=== PATIENT | female | born 1950 | race Caucasian/White ===

== ENCOUNTER → 2020-07-01 | Outpatient (CLI) | payer OTHER, BC ==
[~2020-07-01] MED LIST: ACID CONTROLLER10 MG PO; ALDACTONE25 MG PO; BACTRIM DS TAB1 EACH PO; CHROMAGEN CAPSU1 CAP PO; COREG6.25 MG PO; ENOXAPARIN40 MG/0.4 SUBQ; FEOSOL PO; FISH OIL 1,0001 EAC5 PO; FOLIC ACID 40400 MC1 PO; FOLIC ACID1 MG PO; IBUPROFEN 600600 M1 PO; METHOTREXATE 22.5 MG PO; MULTIVITAMINS PO; MYLANTA 12 OZ355 M1 PO; MYLANTA PO; NASOGEL INH; NORCO 5-325 TA1 EACH PO; TORSEMIDE PO; TORSEMIDE5 MG PO; TUMS PO; XARELTO20 MG PO
== END ==
LOC: SJCVC 16:04
PROVIDERS: ATTEND Internal Medicine
DX: R94.31 Abnormal electrocardiogram [ECG] [EKG] (principal); I42.8 Other cardiomyopathies; I50.22 Chronic systolic (congestive) heart failure; I48.21 Permanent atrial fibrillation; E78.5 Hyperlipidemia, unspecified; E66.09 Other obesity due to excess calories; M06.9 Rheumatoid arthritis, unspecified; Z79.899 Other long term (current) drug therapy